=== PATIENT | female | born 1945 | race Caucasian/White ===

== ENCOUNTER 2017-03-26 01:56 | Inpatient (IN) | payer OTHER ==
[~2017-03-26] VITALS: Ht 170.2 cm; Wt 73.6 kg
[2017-03-26 01:56] VITALS: BP_SYST 155
[2017-03-26] MEDS ORDERED: NACL 0.9% 1,000 ML IV ONE (02:15)
[2017-03-26] MEDS ORDERED: ONDANSETRON HCL 4 MG/2 ML VIAL IVP ONE (02:30)
[2017-03-26] MEDS ORDERED: KETOROLAC TROMETHAMINE 30 MG VIAL IVP ONE (02:45)
[2017-03-26 02:54] LABS: BASOPHILS % (AUTO) 0.6 % (0.0-2.0); EOSINOPHILS % (AUTO) 0.5 % (0.0-4.0); HEMATOCRIT 36.5 % (36-48); HEMOGLOBIN 12.4 g/dL (12.0-16.0); LYMPHOCYTES # (AUTO) 1.1 K/uL (1.0-5.5); MEAN CORPUSCULAR HEMOGLOBIN 31 pg (27-31); MEAN CORPUSCULAR HGB CONC 34 % (32-36); MEAN CORPUSCULAR VOLUME 90 fL (79.0-98.0); MONOCYTES # (AUTO) 0.7 K/uL (0.0-1.0); MONOCYTES % (AUTO) 8.1 % (1.7-9.3); NEUTROPHILS # (AUTO) 6.4 K/uL (1.8-7.7); NEUTROPHILS % (AUTO) 77.8 % (40.0-70.0); PLATELET COUNT (AUTO) 209 K/uL (130-430); RED BLOOD CELL COUNT(AUTO) 4.07 MIL/uL (4.2-6.2); RED CELL DISTRIBUTION WIDTH 12.1 % (9.0-15.0); WHITE BLOOD COUNT (AUTO) 8.2 K/uL (4.8-10.8)
[2017-03-26 03:07] LABS: ANION GAP 8 (5-15); CALCIUM 8.3 mg/dL (8.4-11.0); CHLORIDE 102 mmol/L (98-107); CREATININE 0.64 mg/dL (0.55-1.30); GLUCOSE 114 mg/dL (70-99); POTASSIUM 3.6 mmol/L (3.5-5.1); SODIUM SERUM 134 mmol/L (136-145); UREA NITROGEN, BLOOD 13 mg/dL (8-21)
[2017-03-26 03:09] LABS: PROTHROMBIN TIME 10.4 SECS (9.5-12.5)
[2017-03-26 03:12] LABS: ALANINE AMINOTRANSFERASE 23 U/L (12-78); ALBUMIN 3.4 g/dL (3.4-4.8); ASPARTATE AMINOTRANSFERASE 24 U/L (10-37); TOTAL BILIRUBIN 0.7 mg/dL (0.0-1.0); TOTAL PROTEIN, SERUM 6.3 g/dL (6.4-8.3)
[2017-03-26] MEDS ORDERED: NACL 0.9% IV ONE (04:15)
[2017-03-26 04:21] LABS: BILIRUBIN,URINE NEGATIVE (NEGATIVE); BLOOD, URINE NEGATIVE (NEGATIVE); CLARITY/URINE CLEAR (CLEAR); COLOR,URINE YELLOW (YELLOW); GLUCOSE,URINE NEGATIVE (NEGATIVE); KETONES,URINE NEGATIVE (NEGATIVE); LEUKOCYTE ESTERASE ,URINE NEGATIVE (NEGATIVE); NITRITE, URINE NEGATIVE (NEGATIVE); PROTEIN URINE NEGATIVE (NEGATIVE); UROBILINOGEN,URINE 0.2 (0.2-1.0)
[2017-03-26] MEDS ORDERED: MAGN64TA11 PO (04:44)
[2017-03-26] MEDS ORDERED: ASPI-1063 PO (04:44)
[2017-03-26] MEDS ORDERED: LOSA50TA3 PO (04:44)
[2017-03-26] MEDS ORDERED: [UNRECOGNIZED DRUG - CODE] PO (04:44)
[2017-03-26] MEDS ORDERED: MULT PO (04:44)
[2017-03-26] MEDS ORDERED: ACETAMINOPHEN 325 MG TABLET PO PRN (05:00)
[2017-03-26 05:16] VITALS: BP_SYST 145
[2017-03-26] MEDS: LR 1,000 ML IV SCH ×2 (06:16→15:00)
[2017-03-26] MEDS: cefTRIAXone 1 GM IVPB PREMIX 50 ML IV SCH (06:16)
[2017-03-26] MEDS ORDERED: cefTRIAXone 1 GM IVPB PREMIX 50 ML IV ONE (06:17)
[2017-03-26 08:00] VITALS: BP_SYST 137
[2017-03-26] MEDS ORDERED: ASPIRIN 81 MG TABLET(ECOTRIN) PO ONE (11:30)
[2017-03-26 11:44] VITALS: BP_SYST 140
[2017-03-26 16:14] VITALS: BP_SYST 123
[2017-03-27 00:38] VITALS: BP_SYST 99
[2017-03-27] MEDS: LR 1,000 ML IV SCH (01:28)
[2017-03-27 04:42] VITALS: BP_SYST 106
[2017-03-27] MEDS: cefTRIAXone 1 GM IVPB PREMIX 50 ML IV SCH (05:53)
[2017-03-27 07:37] LABS: BASOPHILS % (AUTO) 0.7 % (0.0-2.0); EOSINOPHILS # (AUTO) 0.1 K/uL (0.0-0.4); EOSINOPHILS % (AUTO) 1.8 % (0.0-4.0); HEMATOCRIT 35.6 % (36-48); HEMOGLOBIN 11.8 g/dL (12.0-16.0); LYMPHOCYTES # (AUTO) 1.5 K/uL (1.0-5.5); LYMPHOCYTES % (AUTO) 27.4 % (20.5-51.5); MEAN CORPUSCULAR HEMOGLOBIN 30 pg (27-31); MEAN CORPUSCULAR HGB CONC 33 % (32-36); MEAN CORPUSCULAR VOLUME 90 fL (79.0-98.0); MONOCYTES # (AUTO) 0.4 K/uL (0.0-1.0); MONOCYTES % (AUTO) 7.5 % (1.7-9.3); NEUTROPHILS # (AUTO) 3.5 K/uL (1.8-7.7); NEUTROPHILS % (AUTO) 62.6 % (40.0-70.0); PLATELET COUNT (AUTO) 201 K/uL (130-430); RED BLOOD CELL COUNT(AUTO) 3.94 MIL/uL (4.2-6.2); RED CELL DISTRIBUTION WIDTH 12.6 % (9.0-15.0); WHITE BLOOD COUNT (AUTO) 5.5 K/uL (4.8-10.8)
[2017-03-27 08:00] VITALS: BP_SYST 134
[2017-03-27 08:06] LABS: ALANINE AMINOTRANSFERASE 18 U/L (12-78); ALBUMIN 2.8 g/dL (3.4-4.8); ANION GAP 6 (5-15); ASPARTATE AMINOTRANSFERASE 17 U/L (10-37); CHLORIDE 110 mmol/L (98-107); CREATININE 0.61 mg/dL (0.55-1.30); GLUCOSE 100 mg/dL (70-99); LIPASE 113 U/L (73-393); POTASSIUM 3.7 mmol/L (3.5-5.1); SODIUM SERUM 142 mmol/L (136-145); TOTAL BILIRUBIN 0.4 mg/dL (0.0-1.0); TOTAL PROTEIN, SERUM 5.8 g/dL (6.4-8.3); UREA NITROGEN, BLOOD 8 mg/dL (8-21)
[2017-03-27] MEDS ORDERED: MULTIVITAMINS TAB 1 TABLET PO SCH (09:00)
[2017-03-27] MEDS ORDERED: MAGNESIUM CHLORIDE 64 MG TABLET.DR PO SCH (09:00)
[2017-03-27] MEDS ORDERED: ASPIRIN 81 MG TABLET(ECOTRIN) PO SCH (09:00)
[2017-03-27 11:50] VITALS: BP_SYST 135
[2017-03-27 15:33] VITALS: BP_SYST 147
[2017-03-27 15:57] VITALS: BP_SYST 147
== END 2017-03-27 17:10 | disposition home health service (06) | DRG 312 ==
LOC: SED 01:56 → STU 04:56
PROVIDERS: ADMIT Internal Medicine; ATTEND Internal Medicine
DX: R55 Syncope and collapse (principal); E87.1 Hypo-osmolality and hyponatremia; E44.1 Mild protein-calorie malnutrition; K52.9 Noninfective gastroenteritis and colitis, unspecified; I10 Essential (primary) hypertension; M81.0 Age-related osteoporosis without current pathological fracture; E86.0 Dehydration; D64.9 Anemia, unspecified; A08.4 Viral intestinal infection, unspecified; W18.39XA Other fall on same level, initial encounter; Y93.89 Activity, other specified; Y92.89 Other specified places as the place of occurrence of the external cause; Y99.8 Other external cause status; Z86.73 Personal history of transient ischemic attack (TIA), and cerebral infarction without residual deficits; Z79.82 Long term (current) use of aspirin; Z79.899 Other long term (current) drug therapy; Z90.710 Acquired absence of both cervix and uterus; Z68.25 Body mass index [BMI] 25.0-25.9, adult
CPT/HCPCS: 36415; 70450-TC; 71010; 72131; 80053; 81003; 83605; 83690-TC; 84484; 85025; 85610-TC; 85730-TC; 87040-TC; 87081; 87086; 93005; 93306; 93880; 95816; J0696; J1885; J2405; J7030; J7120

== ENCOUNTER 2019-04-23 07:21 | Inpatient (IN) | payer OTHER ==
[~2019-04-23] VITALS: Ht 170.2 cm; Wt 67.6 kg
[~2019-04-23 07:21] MED LIST: ASPI-1154 PO; MULT PO; SLOW-MAG64 M1 PO
[2019-04-23 07:25] VITALS: BP_SYST 148
--- NOTE | 2019-04-23 07:27 | NUR ---
Placed in room 8. Placed on button and buckle maker, blood pressure machine and pulse oximeter. To gown for exam. Side rails up. Report given to Tristian BUTCHER.
--- NOTE | 2019-04-23 07:29 | NUR ---
Patient is awake, alert, and oriented x4. Patient reports dull chest pain x2 days radiating to left arm. Patient reports that pain is made worse on exertion with relief from rest. She denies nausea and vomiting.
--- NOTE | 2019-04-23 07:38 | NUR ---
ER Dr. Huerta at bedside examining patient.
[2019-04-23] MEDS ORDERED: ASPIRIN 81 MG TAB.CHEW PO ONE (07:45)
[2019-04-23 08:01] LABS: BASOPHILS # (AUTO) 0.1 K/uL (0.0-0.2); BASOPHILS % (AUTO) 0.9 % (0.0-2.0); EOSINOPHILS # (AUTO) 0.1 K/uL (0.0-0.4); EOSINOPHILS % (AUTO) 2.2 % (0.0-4.0); HEMATOCRIT 40.5 % (36-48); HEMOGLOBIN 13.6 g/dL (12.0-16.0); LYMPHOCYTES # (AUTO) 1.5 K/uL (1.0-5.5); LYMPHOCYTES % (AUTO) 24.7 % (20.5-51.5); MEAN CORPUSCULAR HEMOGLOBIN 30 pg (27-31); MEAN CORPUSCULAR HGB CONC 34 % (32-36); MEAN CORPUSCULAR VOLUME 89 fL (79.0-98.0); MONOCYTES # (AUTO) 0.4 K/uL (0.0-1.0); NEUTROPHILS # (AUTO) 4.1 K/uL (1.8-7.7); NEUTROPHILS % (AUTO) 65.2 % (40.0-70.0); PLATELET COUNT (AUTO) 247 K/uL (130-430); RED BLOOD CELL COUNT(AUTO) 4.54 MIL/uL (4.2-6.2); RED CELL DISTRIBUTION WIDTH 13.3 % (9.0-15.0); WHITE BLOOD COUNT (AUTO) 6.2 K/uL (4.8-10.8)
[2019-04-23 08:34] LABS: ANION GAP 9 (5-15); CALCIUM 8.8 mg/dL (8.4-11.0); CHLORIDE 106 mmol/L (98-107); CREATININE 0.65 mg/dL (0.55-1.30); GLUCOSE 92 mg/dL (70-99); POTASSIUM 4.2 mmol/L (3.5-5.1); SODIUM SERUM 142 mmol/L (136-145); UREA NITROGEN, BLOOD 13 mg/dL (8-21)
[2019-04-23 08:40] LABS: ALANINE AMINOTRANSFERASE 25 U/L (12-78); ALBUMIN 3.4 g/dL (3.4-4.8); ASPARTATE AMINOTRANSFERASE 23 U/L (10-37); TOTAL BILIRUBIN 0.4 mg/dL (0.0-1.0)
[2019-04-23] MEDS ORDERED: LOSA25TA3 PO (09:21)
[2019-04-23] MEDS ORDERED: RALO60TA PO (09:21)
--- NOTE | 2019-04-23 09:42 | NUR ---
Patient will be admitted to care of Dr. Mckee. Admitted to telemetry unit. Will go to room 107B. Belongings list completed. Summary report printed. Report will be given at bedside.
--- NOTE | 2019-04-23 10:01 | NUR ---
ADMISSION NOTE Received patient from ER via [place], received report from KLARISSA BUTCHER. Patient admitted with diagnosis of CHEST PAIN. Patient oriented to hospital routine, call light, toileting and safety-patient verbalized understanding.
--- NOTE | 2019-04-23 10:04 | NUR ---
CONSULTATION PAGED REASON FOR CONSULTATION:CHEST PAIN WAS CONSULT CALLED?Y PERSON WHO WAS NOTIFIED:MATTHEW CONSULTING PHYSICIAN:ERVIN SULLIVAN [employer] SPECIALTY:CARDIO [employer] PHONE NUMBER:[phone] ORDERING PHYSICIAN:WHITNEY SANTAMARIA
--- NOTE | 2019-04-23 10:04 | NUR ---
Patient transferred to room 107B via [facility], mobile monitor, 2 RNs. Bedside report given to GUADALUPE Tran for continuation of care.
[2019-04-23 10:10] VITALS: BP_SYST 137
--- NOTE | 2019-04-23 10:10 | NUR ---
admission physical assessment done. no skin breakdown noted. only has discolored both arms. ambulatory. voids at the bathroom. no complaint made so far. still on the sinus bradycardia at 53's no ectopy noted. patient asymptomatic. no chest pain nor other acute distress noted.
[2019-04-23 12:00] VITALS: BP_SYST 128
--- NOTE | 2019-04-23 12:00 | NUR ---
had lunch eaten 100% of food consumed. made comfortable.
--- NOTE | 2019-04-23 13:00 | NUR ---
assists on adls. informed patient needs a urine for laboratory.
--- NOTE | 2019-04-23 15:25 | NUR ---
sent urine sample for urinalysis.
--- NOTE | 2019-04-23 15:46 | NUR ---
still sunus bradycardia on 46's 47, 48. no other ectopy noted. patient stable. watching tv.
[2019-04-23 15:55] LABS: BILIRUBIN,URINE NEGATIVE (NEGATIVE); BLOOD, URINE NEGATIVE (NEGATIVE); CLARITY/URINE CLEAR (CLEAR); COLOR,URINE YELLOW (YELLOW); GLUCOSE,URINE NEGATIVE (NEGATIVE); KETONES,URINE NEGATIVE (NEGATIVE); LEUKOCYTE ESTERASE ,URINE NEGATIVE (NEGATIVE); NITRITE, URINE NEGATIVE (NEGATIVE); PH,URINE 7.5 (5.0-8.0); PROTEIN URINE NEGATIVE (NEGATIVE); UROBILINOGEN,URINE 0.2 (0.2-1.0)
[2019-04-23 16:51] VITALS: BP_SYST 150
--- NOTE | 2019-04-23 16:56 | NUR ---
patient just went to the bathroom voided x 2.
--- NOTE | 2019-04-23 17:53 | NUR ---
resting and watching tv. son is at the bedside.
--- NOTE | 2019-04-23 18:00 | NUR ---
eating dinner. no complained made so far.
--- NOTE | 2019-04-23 19:00 | NUR ---
dr Adan came and evaluate the patient and made orders.
--- NOTE | 2019-04-23 19:12 | NUR ---
endorsed to incoming nurse Bakari RN
--- NOTE | 2019-04-23 19:30 | NUR ---
Initial Notes Handoff report received from offgoing nurse at the bedside. Patient is awake and alert, resting comfortably in bed. No SOB, no acute distress, no complaints of pain or facial grimacing noted. IV site intact, dressing clean and dry, saline locked. Call light within reach. Will continue with plan of care.
--- NOTE | 2019-04-23 19:45 | NUR ---
DR SUE AT THE BEDSIDE TO SEE THE PATIENT. ALL QUESTIONS AND CONCERNS HAS BEEN ANSWERED BY HIM.
[2019-04-23 20:00] VITALS: BP_SYST 126
--- NOTE | 2019-04-23 22:00 | NUR ---
Patient ambulated to the restroom and back to bed independently without assistance, steady gait. Now resting in bed. No SOb, no acute distress, no complaints of pain at this time. Bed is locked, lowest position, 2x siderails up, bed alarm is on. Call light within reach. Encouraged to call for assistance.
[2019-04-23 23:45] VITALS: BP_SYST 114
--- NOTE | 2019-04-24 | NUR ---
Patient resting in bed, eyes closed, breathing even and unlabored, visible chest rise and fall noted. No SOb, no acute distress, no signs of pain or facial grimacing. Bed is locked, in the lowest position, 2x side rails up, bed alarm is on. Call light is within reach.
--- NOTE | 2019-04-24 02:27 | NUR ---
Patient resting in bed, eyes closed. Lying on her left side. No SOb, no acute distress, no signs of pain or facial grimacing noted. Call light within reach.
--- NOTE | 2019-04-24 03:57 | NUR ---
Patient resting in bed, AAOx4. No SOB, no acute distress, no complaints of pain at this time. IV site intact, dressing clean and dry, saline locked. Bed is locked, in the lowest position, 2x side rails up. Call light within reach. Encouraged to call.
--- NOTE | 2019-04-24 06:43 | NUR ---
Blood transfusion completed. flushed site with NS. No signs of transfusion reaction noted. Addendum: 04/24/19 at 0653 by Viola Broussard RN error* wrong patient
[2019-04-24 06:52] LABS: CHOLESTEROL 195 mg/dL (<200); HDL CHOLESTEROL 69 mg/dL (>55); LDL CHOLESTEROL 107 mg/dL (<100); TRIGLYCERIDES 63 mg/dL (30-150)
--- NOTE | 2019-04-24 06:53 | NUR ---
patient resting comfortably in bed, aaox4. no sob, no acute distress, no complaints of pain at this time. bed is locked, in the lowest position, 2x side rails up. call light within reach. fall and safety precautions maintained. all needs have been met at this time. will endorse care to oncoming dayshift nurse.
--- NOTE | 2019-04-24 08:07 | NUR ---
OPENING NOTE patient is resting in bed A&O x4, patient denies any acute distress or pain, breathing is even and unlabored on room air, educated patient on plan of care and call light system, will continue to monitor, safety precautions in place, call light within reach.
[2019-04-24 08:29] VITALS: BP_SYST 140
[2019-04-24] MEDS ORDERED: LOSARTAN POTASSIUM 25 MG TABLET PO SCH (09:00)
[2019-04-24] MEDS ORDERED: ASPIRIN 81 MG TABLET(ECOTRIN) PO SCH (09:00)
[2019-04-24] MEDS ORDERED: EVISTA 60 MG PO SCH (09:00)
[2019-04-24] MEDS ORDERED: MAGNESIUM CHLORIDE 64 MG TABLET.DR PO SCH (09:00)
--- NOTE | 2019-04-24 10:10 | NUR ---
NOTES patient is resting in bed with eyes closed, no acute distress or pain is noted, breathing is even and unlabored on room air, will continue to monitor, safety precautions in place, call light within reach.
[2019-04-24 12:14] VITALS: BP_SYST 132
[2019-04-24 12:16] VITALS: BP_SYST 132
--- NOTE | 2019-04-29 11:57 | NUR ---
Discharge Follow Up Phone Call [employer] phoned patient, . Patient stated she was doing fine. She has a follow up appointment with her PCP on 05/01/19. No questions or concerns.
== END 2019-04-24 12:52 | disposition home or self-care (01) | DRG 313 ==
LOC: SED 07:21 → STU 09:44
PROVIDERS: ADMIT Internal Medicine; ATTEND Internal Medicine
DX: R07.89 Other chest pain (principal); I11.9 Hypertensive heart disease without heart failure; M81.0 Age-related osteoporosis without current pathological fracture; M17.11 Unilateral primary osteoarthritis, right knee; R32 Unspecified urinary incontinence; Z80.1 Family history of malignant neoplasm of trachea, bronchus and lung; Z80.3 Family history of malignant neoplasm of breast; Z90.710 Acquired absence of both cervix and uterus; Z79.899 Other long term (current) drug therapy
CPT/HCPCS: 36415; 71045; 80053; 80061; 81003; 84443-TC; 84484; 85025; 85379; 93005; 93306; 99285; G0378

== ENCOUNTER 2019-05-31 10:11 | Emergency (ER) | payer OTHER ==
[~2019-05-31] VITALS: Ht 170.2 cm; Wt 63.5 kg
[~2019-05-31 10:11] MED LIST changes: +LOSA25TA3 PO; +RALO60TA PO
[2019-05-31 10:26] VITALS: BP_SYST 151
[2019-05-31] MEDS ORDERED: LIDOCAINE 1% 10 MG/ML, 20 ML MDV IJ ONE (10:45)
[2019-05-31] MEDS ORDERED: DIPH-TET-PERTUS Vaccine 0.5 ML VIAL (ADACEL) IM ONE (10:45)
[2019-05-31] MEDS ORDERED: BACITRACIN 1 GM OINT TP ONE (10:45)
[2019-05-31 11:45] VITALS: BP_SYST 151
== END 2019-05-31 11:45 | disposition home or self-care (01) ==
LOC: SED 10:11
DX: S51.811A Laceration without foreign body of right forearm, initial encounter (principal); I10 Essential (primary) hypertension; Z79.899 Other long term (current) drug therapy; W54.0XXA Bitten by dog, initial encounter; Y93.89 Activity, other specified; Y92.89 Other specified places as the place of occurrence of the external cause; Y99.8 Other external cause status
CPT/HCPCS: 12002; 73090; 90471; 90715; 99283; J2001

== ENCOUNTER 2019-12-20 19:18 | Emergency (ER) | payer OTHER ==
[~2019-12-20] VITALS: Ht 170.2 cm; Wt 68.0 kg
[~2019-12-20 19:18] MED LIST changes: -ASPI-1154 PO; +ASPI-1457 PO
[2019-12-20 19:44] VITALS: BP_SYST 160
--- NOTE | 2019-12-20 21:45 | NUR ---
Pt placed to ER bed 06. Report given to GUADALUPE Barraza.
--- NOTE | 2019-12-20 22:02 | NUR ---
Pt AAOx4 ambulated into ED c/o swelling to R hip s/p trip and fall on concrete today. Denies pain. No other injurues/complaints per pt/noted. Will continue to monitor.
--- NOTE | 2019-12-20 23:10 | NUR ---
ER Dr. Leon at bedside examining patient.
--- NOTE | 2019-12-21 | NUR ---
Patient given written and verbal discharge instructions and verbalizes understanding. ER MD Leon discussed with patient the results and treatment provided. Patient in stable condition. ID arm band removed. No Rx given. Patient educated on pain management and to follow up with PMD. Pain Scale 0. Opportunity for questions provided and answered. Medication side effect fact sheet provided.
[2019-12-21 00:21] VITALS: BP_SYST 132
== END 2019-12-21 | disposition home or self-care (01) ==
LOC: SED 19:18
DX: S70.01XA Contusion of right hip, initial encounter (principal); I10 Essential (primary) hypertension; Z79.82 Long term (current) use of aspirin; Z79.899 Other long term (current) drug therapy; Z90.710 Acquired absence of both cervix and uterus; W01.0XXA Fall on same level from slipping, tripping and stumbling without subsequent striking against object, initial encounter; Y93.89 Activity, other specified; Y92.89 Other specified places as the place of occurrence of the external cause; Y99.8 Other external cause status
CPT/HCPCS: 73502; 99283